=== PATIENT | male | born 1975 | race Caucasian/White ===

== ENCOUNTER → 2025-09-07 | Outpatient (CLI) | payer OTHER ==
[~2025-09-07] MED LIST: AZIT250 PO; Acyclovir800 MG PO; Amoxicillin500 MG PO; HYDACE5 PO; Hydrochlorothia25 MG PO; Lopressor 50 mg50 MG PO; Naprosyn500 MG PO; Norco 5-325 Ta1 EACH PO; Prednisone20 MG PO; TOBDEXOPSU OS; Veetids 500500 MG PO; Zovirax400 MG PO
== END | disposition home or self-care (01) ==
LOC: LAB 19:54 → LAB SHORT 19:54
DX: N39.0 Urinary tract infection, site not specified (principal)
CPT/HCPCS: 87077; 87086; 87186